=== PATIENT | male | born 1960 | race Caucasian/White ===

== ENCOUNTER 2020-01-16 14:37 | Outpatient (REF) | payer OTHER, SELFPAY | END 2020-01-16 14:38 | disposition home or self-care (01) | LOC: HO.BBR 14:37 | PROVIDERS: PCP Internal Medicine; Visit Provider Internal Medicine Medical Oncology | DX: D75.1 Secondary polycythemia (principal) | CPT/HCPCS: 85018; 99195 ==

== ENCOUNTER 2020-02-16 | Outpatient (REF) | payer OTHER, SELFPAY | END 2020-02-16 00:01 | disposition home or self-care (01) | LOC: HO.BBR | PROVIDERS: PCP Internal Medicine; Visit Provider Internal Medicine Medical Oncology | DX: M46.1 Sacroiliitis, not elsewhere classified (principal); G62.89 Other specified polyneuropathies; Z79.899 Other long term (current) drug therapy | CPT/HCPCS: 99202 ==

== ENCOUNTER 2020-12-14 08:51 | Outpatient (REF) | payer OTHER, SELFPAY ==
[2020-12-14 09:21] LABS: MANUAL DIFF FLAG NO
[2020-12-14 09:28] LABS: Basophils Absolute Auto 0.1 X10*3/uL (0.0-0.2); Basophils Percent Auto 0.8 % (0-2); Eosinophils Absolute Auto 0.3 X10*3/uL (0.0-0.4); Hematocrit 49.2 % (42-52); Hemoglobin 16.4 g/dl (14.0-18.0); Imm Gran Abs Auto 0.03 X10*3/uL (0.00-0.03); Imm Gran Pct Auto 0.3 % (0.0-0.4); Lymphocytes Absolute Auto 3.2 X10*3/uL (1.2-4.9); Lymphocytes Percent Auto 37.4 % (20-40); Mean Corpuscular HGB Conc 33.3 g/dl (31.0-36.0); Mean Corpuscular Hemoglobin 31.5 pg (27.0-33.0); Mean Corpuscular Volume 94.4 fL (80-98); Monocytes Absolute Auto 0.7 X10*3/uL (0.1-1.2); Monocytes Percent Auto 7.9 % (2-11); Neutrophils Absolute Auto 4.4 X10*3/uL (2.0-8.3); Neutrophils Percent Auto 50.6 % (45-73); Platelet Count 231 X10*3/uL (160-400); Red Blood Count 5.21 X10*6/uL (4.60-5.80); Red Cell Distribution Width 13.9 % (11.0-16.0); White Blood Count 8.6 X10*3/uL (4.8-10.8)
[2020-12-14 09:58] LABS: Alanine Aminotransferase 29 U/L (0-40); Albumin Level 4.5 g/dL (3.5-5.0); Alkaline Phosphatase 90 U/L (39-117); Anion Gap 11 (12-20); Aspartate Amino Transferase 20 U/L (5-37); Bilirubin Total 0.5 mg/dL (0.0-1.0); Blood Urea Nitrogen 12 mg/dL (9-16); Carbon Dioxide 27 mmol/L (22-29); Chloride 105 mmol/L (96-108); Cholesterol 187 mg/dL; Estimated Glomerular Filt Rate > 60; Glucose Fasting 96 mg/dL (60-99); HDL Cholesterol 32 mg/dL; LDL Cholesterol Calculated 126 mg/dl; Potassium 4.2 mmol/L (3.3-5.1); Sodium 139 mmol/L (135-145); Total Protein 7.9 g/dL (6.5-8.0); Triglycerides 149 mg/dL
[2020-12-14 10:08] LABS: Uric Acid 5.3 mg/dL (3.4-7.0)
[2020-12-21 14:01] LABS: Vitamin D 25-OH, D2 <4 ng/mL; Vitamin D 25-OH, D3 24 ng/mL; Vitamin D 25-OH, Total 24 ng/mL (30-100)
== END 2020-12-14 08:52 | disposition home or self-care (01) ==
LOC: HO.LAB 08:51
PROVIDERS: PCP Internal Medicine; Visit Provider Internal Medicine
DX: E55.9 Vitamin D deficiency, unspecified (principal); E78.5 Hyperlipidemia, unspecified; M10.9 Gout, unspecified; D64.9 Anemia, unspecified; G62.89 Other specified polyneuropathies
CPT/HCPCS: 36415; 80053; 80061; 82306; 84550; 85025

== ENCOUNTER 2022-01-13 15:00 | Outpatient (RCR) | payer OTHER, SELFPAY ==
--- NOTE | 2021-12-18 15:18 | MHC.PT.EP ---
[facility] [place] Office [place] Office [place] Office [address] Angelique Jain [address] [phone] F: [phone] F: [phone] F: [phone] F: [phone] Physical Therapy Plan of Care Date of Evaluation: Date of Surgery: Diagnosis: SACROILIITIS Assessment: 61 YO MALE REF TO PT W PROGRESSIVE SACROILIITIS x 2 YRS. 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 OBJECTIVE FINDINGS: DECR POSTURE, DECR HIP FLEXIB, LIMITED TRUNK AROM, (+) LEFT HIP / FADIR SIGN, STRENGTH DEFICITS IN PROX LEs AND LUMBOPELVIC REGION, AND FLUCTUATING LB/ Lt SI PAIN W INTER LEFT ANKLE /FOOT BURNING. FUNCTIONALLY, Pt HAS DECR BODY MECH AWARENESS, DECR MARGARET TO WALKING, SITTING, AND PROLONGED STANDING- HE HAS DECR TENDENCY TO SQUAT -> HABITUALLY FLEXES AT WAIST. Pt WOULD BENEFIT FROM PT TO ADDRESS THE ABOVE FINDINGS, DEV A PROGR HEP, AND SELF-SX MGMT STRATEGIES. Frequency and Duration: The patient will be seen 2 X wk X 5 wks Short Term Goals: *Pt INDEP W SELF CORRECT POSTURE AND BODY MECH TO EASE LB STRESS *Pt'S LBP DECR TO 2-3/10 *IMPROVE FREDI HIP FLEXIBILITY Nursing Home Goals: Pt INDEP W HEP PROGRESSION AND SELF-SX MGMT STRATEGIES IN 5 WKS Pt RESUME REG ADLs EVIDENT W IMPROVED OSWESTRY SCORE BY 8-10 POINTS IN 5 WKS Pt INCR LE STRENGTH BY 1 GRADE IN 5 WKS Treatment Plan: Modalities to reduce pain, spasms and effusion. Manual therapy to restore motion and function. Therapeutic exercise to improve strength and flexibility. Neuromuscular re-education for posture and balance. Therapeutic activities to return to functional activities of daily living. Electronically signed by: Laura Oneil,PT Please sign and return to therapist. Thank you for your referral.
--- NOTE | 2022-03-11 10:24 | MHC.PT.DC ---
[facility] [place] Office [place] Office [place] Office [address] Angelique Jain [address] [phone] F: [phone] F: [phone] F: [phone] F: [phone] Physical Therapy Discharge Report Diagnosis: SACROILIITIS Date of Surgery: Date of Evaluation: 12/18/21 Date of Discharge: 03/11/22 Treatments to Date: 6 Cancellations to Date: 4 No Shows to Date: 3 Discharge Status: Improved Function Independent with HEP Visit Non-compliance Discharge Summary: Pt RESPONDED WELL TO PT INTERVENTION FOR HIS SACRAL / LBP. HE DEMON IMPROVED FLEXIBILITY, FUNCTIONAL MOBILITY TOLERANCE, AND OVERALL REDUCED PAIN. HE HAS A THOROUGH AND PROGRESSIVE HEP. A FORMAL REASSESSMENT WAS NOT PERFORMED DUE TO Pt'S DECR ATTENDANCE WITH LAST FEW SCHED APPTS. Electronically signed by: ADRIAN RAPHAEL,PT Please sign and return to therapist. Thank you for your referral.
== END 2022-03-11 10:23 | disposition home or self-care (01) ==
LOC: HO.PT 15:00
PROVIDERS: PCP Internal Medicine; Visit Provider Internal Medicine
DX: M46.1 Sacroiliitis, not elsewhere classified (principal)
CPT/HCPCS: 97110; 97112; 97162; 97530

== ENCOUNTER 2022-01-22 15:09 | Outpatient (REF) | payer OTHER, SELFPAY ==
[2022-01-22 15:36] LABS: MANUAL DIFF FLAG NO
[2022-01-22 16:09] LABS: Basophils Absolute Auto 0.1 X10*3/uL (0.0-0.2); Basophils Percent Auto 0.7 % (0-2); Eosinophils Absolute Auto 0.1 X10*3/uL (0.0-0.4); Eosinophils Percent Auto 1.3 % (0-4); Hematocrit 50.3 % (42.0-52.0); Imm Gran Abs Auto 0.04 X10*3/uL (0.00-0.03); Imm Gran Pct Auto 0.4 % (0.0-0.4); Lymphocytes Absolute Auto 3.1 X10*3/uL (1.2-4.9); Lymphocytes Percent Auto 31.9 % (20-40); Mean Corpuscular HGB Conc 33.8 g/dl (31.0-36.0); Mean Corpuscular Hemoglobin 31.8 pg (27.0-33.0); Mean Platelet Volume 9.7 fL (9.4-12.4); Monocytes Absolute Auto 0.6 X10*3/uL (0.1-1.2); Neutrophils Absolute Auto 5.7 x10*3/uL (2.0-8.3); Neutrophils Percent Auto 59.7 % (45-73); Platelet Count 257 X10*3/uL (160-400); Red Blood Count 5.35 X10*6/uL (4.60-5.80); Red Cell Distribution Width 12.8 % (11.0-16.0); White Blood Count 9.6 X10*3/uL (4.8-10.8)
[2022-01-22 16:36] LABS: Alanine Aminotransferase 45 U/L (0-40); Albumin Level 4.7 g/dL (3.5-5.0); Alkaline Phosphatase 93 U/L (39-117); Anion Gap 18 (12-20); Aspartate Amino Transferase 27 U/L (5-37); Bilirubin Total 0.4 mg/dL (0.0-1.0); Blood Urea Nitrogen 17 mg/dL (9-16); Calcium 10.3 mg/dL (8.4-10.2); Carbon Dioxide 24 mmol/L (22-29); Chloride 103 mmol/L (96-108); Cholesterol 202 mg/dL; Estimated Glomerular Filt Rate > 60; Glucose Fasting 95 mg/dL (60-99); HDL Cholesterol 35 mg/dL; LDL Cholesterol Calculated 145 mg/dl; Potassium 4.8 mmol/L (3.3-5.1); Sodium 140 mmol/L (135-145); Total Protein 8.2 g/dL (6.5-8.0); Triglycerides 114 mg/dL
[2022-01-22 16:57] LABS: Vitamin D 25-OH Total 25.3 ng/mL (>30)
== END 2022-01-22 15:10 | disposition home or self-care (01) ==
LOC: HO.LAB 15:09
PROVIDERS: PCP Internal Medicine; Visit Provider Internal Medicine
DX: Z00.00 Encounter for general adult medical examination without abnormal findings (principal); D64.9 Anemia, unspecified; E78.5 Hyperlipidemia, unspecified; E55.9 Vitamin D deficiency, unspecified; M46.1 Sacroiliitis, not elsewhere classified
CPT/HCPCS: 36415; 80053; 80061; 82306; 85025

== ENCOUNTER → 2022-01-29 14:56 | Outpatient (BNVA) | payer OTHER, SELFPAY | PROVIDERS: PCP Internal Medicine; Visit Provider Internal Medicine Endocrinology, Diabetes & Metabolism | DX: E83.52 Hypercalcemia (principal) | CPT/HCPCS: 99202 ==

== ENCOUNTER 2022-02-18 14:36 | Outpatient (REF) | payer OTHER, SELFPAY ==
[2022-02-18 17:38] LABS: Vitamin D 25-OH Total 26.9 ng/mL (>30)
[2022-02-19 14:17] LABS: Calcium (PTHI) 9.8 mg/dL (8.6-10.3); PTHI 42 pg/mL (16-77)
== END 2022-02-18 14:37 | disposition home or self-care (01) ==
LOC: HO.LAB 14:36
PROVIDERS: PCP Internal Medicine; Visit Provider Internal Medicine Endocrinology, Diabetes & Metabolism
DX: E83.52 Hypercalcemia (principal)
CPT/HCPCS: 36415; 82306; 83970

== ENCOUNTER 2023-06-04 15:11 | Outpatient (AMB) | payer OTHER, SELFPAY ==
--- NOTE | 2023-06-04 15:14 | A.OFFPC_ITS ---
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 Accompanied by: Spouse Allergies cat dander [CAT] Allergy (Mild, Verified 06/04/23 15:28) ITCHING Medication List - Last Reconciled 06/04/23 by Helga Ibarra MD albuterol sulfate 90 mcg/actuation 2 puffs inhalation Q6H PRN 30 days amlodipine 10 mg PO DAILY 90 days calcium carbonate-vitamin D3 250 mg-3.125 mcg (125 unit) (Oyster Shell Calcium- Vitamin D3) 1 tab PO DAILY 90 days cholecalciferol (vitamin D3) 25 mcg PO DAILY 90 days fluticasone propionate 50 mcg/actuation 1 spray intranasal DAILY gabapentin 600 mg PO TID 30 days ibuprofen 600 mg PO TID loratadine 10 mg PO DAILY rosuvastatin 10 mg PO BEDTIME 90 days Tobacco use date assessed: 06/04/23 Dental Screening Dental Screen Date: 06/04/23 Did you have a dental visit in the last 12 months?: No Did you have a dental problem in the last 6 months where you did not have access to dental care?: No Was dental information given to patient?: Patient declined HPI HPI Comments History of Present Illness Details This is a 63-year-old male with hypertension, pure hypercholesterolemia, sacroiliitis and allergic rhinitis that comes today accompanied by for follow-up on his conditions. Blood pressure elevated and his compliant with amlodipine. I will restart him on losartan. Lipid panel will be order. On gabapentin for his sacroiliitis and ibuprofen as needed which seems to help in back pain. Has allergic rhinitis but is not compliant with antihistamines and I recommend to start using it daily. No chest pain or shortness of breath. He has a chronic smoker and has occasional shortness of breath. Does not want to use an inhaler on a daily basis. I will prescribe rescue inhaler as needed as per patient's wishes. Has some skin lesions that most likely are due to age but they still want to be referred to Dermatology. [facility] Medical History (Updated 02/22/24 @ 16:36 by Helga Ibarra MD) Hypovitaminosis D Ingrown toenail Hepatitis C Essential hypertension Peripheral axonal neuropathy Sacroiliitis Surgical History History of strabismus surgery History of knee surgery Family History Father Stroke Hypertension Mother COPD (chronic obstructive pulmonary disease) Maternal Grandmother No problems noted. Maternal Grandfather No problems noted. Paternal Grandmother Cancer Social History Housing: Apartment Alcohol intake: current Alcohol intake frequency: a few times a month Alcohol type: beer Patient Tobacco Use Status: Current everyday Tobacco user Tobacco use type: Cigarette Cigarette Packs Per Day: 1 e-Cigarette/Vaping Use: Never Used Second Hand Smoke Exposure: No service: No Current occupational status: employed Current occupational exposures/hazards: No Cognitive needs: No Hearing needs: No Vision needs: Yes Questionnaire PHQ-9 Over the last 2 weeks, how often have you been bothered by any of the following problems? 1. Little interest or pleasure in doing things: not at all 2. Feeling down, depressed, or hopeless: not at all 3. Trouble falling or staying asleep, or sleeping too much: not at all 4. Feeling tired or having little energy: not at all 5. Poor appetite or overeating: not at all 6. Feeling bad about yourself - or that you are a failure or have let yourself or your family down: not at all 7. Trouble concentrating on things, such as reading the newspaper or watching television: not at all 8. Moving or speaking so slowly that other people could have noticed. Or the opposite - being so fidgety or restless that you have been moving around a lot more than usual: not at all 9. Thoughts that you would be better off or of hurting yourself in some way: not at all Total score: 0 Depression Screening Interpretation: Negative Depression Screening Done: Yes 31741 - PHQ-9 Billing: Yes Source: Developed by Drs. Minh Creda, Mariaa LeachMike and colleagues, with an educational lennox from [employer]. Thrive Questionnaire Date Thrive assessed: 06/04/23 I am a: Patient What is your living situation today?: I have a steady place to live Within the past 12 months, did the food you bought not last and you didn't have the money to get more?: Never true Within the past 12 months, did you worry whether your food would run out before you got money to buy more?: Never true Do you have trouble paying for medicines?: No Do you have trouble getting transportation to medical appointments?: No Do you have trouble paying your heating and electricity bill?: No Do you have trouble taking care of your child, family member or friend?: No Do you have trouble with day-to-day activities such as bathing, preparing meals, shopping, managing finances, etc.?: No Are you currently unemployed and looking for a job?: No Are you interested in more education?: No Please select the resources that you would like help with: None Currently or been in a relationship where the following occur: no concerns reported THRIVE Score: 0 AUDIT C Alcohol Use Questionnaire (AUDIT-C) 1. How often do you have a drink containing alcohol?: 2-4 times a month 2. How many drinks containing alcohol do you have on a typical day when you are drinking?: 3 or 4 3. How often do you have six or more drinks on one occasion?: Never Total Score: 3 Score Reviewed/Action Taken: Yes SANDY-7 AMB Questionnaire SANDY-7 Date SANDY - 7 assessed: 06/04/23 Feeling nervous, anxious, or on edge: 0 = Not at all Not being able to stop or control worryin = Not at all Worrying too much about different things: 0 = Not at all Trouble relaxin = Not at all Being so restless that it is hard to sit still: 0 = Not at all Becoming easily annoyed or irritable: 0 = Not at all Feeling afraid as if something awful might happen: 0 = Not at all Total SANDY-7 score (0-4 normal; 5-9 mild; 10-14 moderate; 15-21 severe): 0 Source: Developed by Drs. Minh Cerda, Mike Blackwell and colleagues, with an educational lennox from [employer]. SANDY-7 Assessment Billing SANDY-7 Assessment Tool: SANDY-7 Assessment 89627 Review of Systems Const All systems reviewed & are unremarkable except as noted in HPI and below Eyes Reports no additional complaints, Denies change in vision and Denies other visual disturbances Card Denies chest pain at rest, Denies chest pain with activity, Denies edema, Denies irregular heart rhythm, Denies claudication, Denies dyspnea, Denies dyspnea on exertion, Denies orthopnea, Denies paroxysmal nocturnal dyspnea and Denies slow heart rate Resp Denies cough, Denies dyspnea and Denies dyspnea on exertion GI Denies abdominal pain, Denies change in bowel habits, Denies excessive flatus, Denies nausea and Denies vomiting Denies urinary hesitancy, Denies urinary incontinence and Denies urinary urgency Musc Denies abnormal gait, Denies atrophy, Denies deformity and Denies limited range of motion Skin/Breast Denies bleeding lesions, Denies changing lesions and Denies rash Neuro Denies abnormal gait, Denies behavioral changes and Denies lack of coordination Psych Denies behavioral changes Physical exam (Primary Care) Vital Signs: Last Vital Signs BP 156/100 H 06/04/23 15:25 BMI result Body Mass Index 28.5 Tobacco/Smoking Status: Tobacco use Status Tobacco use date assessed 06/04/23 06/04/23 15:28 Patient Tobacco Use Status Current everyday Tobacco 06/04/23 15:15 Tobacco use type Cigarette 06/04/23 15:15 e-Cigarette/Vaping Use Never Used 06/04/23 15:15 PHQ-9: PHQ-9 Score PHQ-9: Total score 0 06/04/23 15:43 Depression Screening Interpretation: Negative Thrive Assessment: Date of Thrive Assessment Date Thrive assessed 06/04/23 06/04/23 15:15 Currently or been in a relationship where the following occur: no concerns reported Eyes General: appearance normal, both eyes and all related structures Eyelids: Yes eyelids normal Conjunctivae: conjunctivae normal Neck Neck: Yes normal visual inspection and Yes supple Resp Effort & Inspection: normal respiratory effort Auscultation: clear to auscultation bilaterally Cardio Jugular venous distension: no JVD Rate: regular rate Rhythm: regular rhythm Heart sounds: S1 normal heart sound present and S2 normal heart sound present Extrem General: Yes full ROM Assessment and Plan Assessment & Plan (1) Essential hypertension: Code(s): I10 - Essential (primary) hypertension Plan: Continue amlodipine. Start losartan. Blood pressure goal is equal or less than 130/80. (2) Pure hypercholesterolemia: Code(s): E78.00 - Pure hypercholesterolemia, unspecified Plan: Continue statins. Repeat lipid panel. (3) Sacroiliitis: Code(s): M46.1 - Sacroiliitis, not elsewhere classified Plan: Continue gabapentin. (4) Allergic rhinitis: Code(s): J30.9 - Allergic rhinitis, unspecified Plan: Restart loratadine daily. Orders: Orders Lipid Panel Today E78.5 - Hyperlipidemia, unspecified Vitamin D 25-OH Total Today E55.9 - Vitamin D deficiency, unspecified Comprehensive [place]. Panel Fast Today E78.00 - Pure hypercholesterolemia, unspecified Referrals Dermatology Referral D22.9 - Melanocytic nevi, unspecified Medications: New losartan 25 mg PO DAILY 90 days 90 tabs 1RF I10 - Essential (primary) hypertension levalbuterol tartrate 45 mcg/actuation (Xopenex HFA) 2 inhalations inhalation Q6H 30 days 15 grams 2RF Refilled loratadine 10 mg PO DAILY 30 tabs 6RF Discontinued albuterol sulfate 90 mcg/actuation Discontinued Reason: Patient Completed Course 2 puffs inhalation Q6H 30 days PRN 6.7 grams 1RF shortness of breath or wheezing Coding Level of Care Code Est Pt Level 4 (31667) Diagnoses Essential hypertension I10 Pure hypercholesterolemia E78.00 Sacroiliitis M46.1 Allergic rhinitis J30.9 Additional Codes SANDY-7 Assessment Billing - SANDY-7 Assessment Tool: SANDY-7 Assessment 93144 ([id number]) Time Spent (min) 23
[2023-06-04 15:25] VITALS: BP 156/100; BMI 28.5
[2023-06-04 16:35] VITALS: BP 150/90
== END 2023-06-04 15:50 | disposition home or self-care (01) ==
PROVIDERS: PCP Internal Medicine; Visit Provider Internal Medicine
DX: I10 Essential (primary) hypertension (principal); E78.00 Pure hypercholesterolemia, unspecified; M46.1 Sacroiliitis, not elsewhere classified; J30.9 Allergic rhinitis, unspecified
CPT/HCPCS: 99214

== ENCOUNTER 2023-10-27 13:32 | Outpatient (REF) | payer OTHER, SELFPAY ==
[2023-10-27 15:22] LABS: Alanine Aminotransferase 21 U/L (0-40); Albumin Level 4.5 g/dL (3.5-5.0); Alkaline Phosphatase 70 U/L (39-117); Anion Gap 15 (12-20); Aspartate Amino Transferase 16 U/L (5-37); Bilirubin Total 0.5 mg/dL (0.0-1.0); Blood Urea Nitrogen 10 mg/dL (9-16); Calcium 10.1 mg/dL (8.4-10.2); Carbon Dioxide 22 mmol/L (22-29); Chloride 105 mmol/L (96-108); Cholesterol 185 mg/dL (<200); Estimated Glomerular Filt Rate > 60; Glucose Fasting 106 mg/dL (60-99); HDL Cholesterol 34 mg/dL (>40); LDL Cholesterol Calculated 113 mg/dL (<100); Potassium 3.9 mmol/L (3.3-5.1); Sodium 138 mmol/L (135-145); Total Protein 7.8 g/dL (6.5-8.0); Triglycerides 190 mg/dL (<150)
[2023-10-27 15:39] LABS: Vitamin D 25-OH Total 28.9 ng/mL (>30)
== END 2023-10-27 13:33 | disposition home or self-care (01) ==
LOC: HO.LAB 13:32
PROVIDERS: PCP Internal Medicine; Visit Provider Internal Medicine
DX: E78.5 Hyperlipidemia, unspecified (principal); E55.9 Vitamin D deficiency, unspecified; E78.00 Pure hypercholesterolemia, unspecified
CPT/HCPCS: 36415; 80053; 80061; 82306

== ENCOUNTER 2023-11-05 13:55 | Outpatient (AMB) | payer OTHER, SELFPAY ==
[2023-11-05 13:57] VITALS: BP 126/70; BMI 27.2
--- NOTE | 2023-11-05 13:57 | A.OFFPC_ITS ---
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 Accompanied by: Spouse Allergies cat dander [CAT] Allergy (Mild, Verified 11/05/23 14:10) ITCHING Medication List - Last Reconciled 11/05/23 by Helga Ibarra MD amlodipine 10 mg PO DAILY 90 days calcium carbonate-vitamin D3 250 mg-3.125 mcg (125 unit) (Oyster Shell Calcium-Vitamin D3) 1 tab PO DAILY 90 days cholecalciferol (vitamin D3) 25 mcg PO DAILY 90 days fluticasone propionate 50 mcg/actuation 1 spray intranasal DAILY gabapentin 600 mg PO TID 30 days ibuprofen 600 mg PO TID levalbuterol tartrate 45 mcg/actuation (Xopenex HFA) 2 inhalations inhalation Q6H 30 days loratadine 10 mg PO DAILY losartan 25 mg PO DAILY 90 days rosuvastatin 10 mg PO BEDTIME 90 days Tobacco use date assessed: 06/04/23 Dental Screening Dental Screen Date: 06/04/23 HPI HPI Comments History of Present Illness Details This is a 63-year-old male with COPD that comes accompanied by for his physical exam. Last colonoscopy was 2016 showing tubular adenoma and will be refer through open access. He complains of both of his 1st toenails bothering him most likely due to onychogryphosis and will be referred to Podiatry. COPD stable. [facility] Medical History (Updated 11/05/23 @ 14:45 by Helga Ibarra MD) Hypovitaminosis D Ingrown toenail Hepatitis C Essential hypertension Peripheral axonal neuropathy Sacroiliitis Surgical History History of strabismus surgery History of knee surgery Family History Father Stroke Hypertension Mother COPD (chronic obstructive pulmonary disease) Maternal Grandmother No problems noted. Maternal Grandfather No problems noted. Paternal Grandmother Cancer Social History Housing: Apartment Alcohol intake: current Alcohol intake frequency: a few times a month Alcohol type: beer Patient Tobacco Use Status: Current everyday Tobacco user Tobacco use type: Cigarette Cigarette Packs Per Day: 1 e-Cigarette/Vaping Use: Never Used Second Hand Smoke Exposure: No service: No Current occupational status: employed Current occupational exposures/hazards: No Cognitive needs: No Hearing needs: No Vision needs: Yes Questionnaire Thrive Questionnaire Date Thrive assessed: 06/04/23 SANDY-7 AMB Questionnaire SANDY-7 Date SANDY - 7 assessed: 06/04/23 Source: Developed by Drs. Minh Cerda, Mariaa Leach, Mike Santamaria and colleagues, with an educational lennox from [employer]. Review of Systems Const All systems reviewed & are unremarkable except as noted in HPI and below Card Denies chest pain at rest, Denies chest pain with activity, Denies edema, Denies irregular heart rhythm, Denies claudication, Denies dyspnea, Denies dyspnea on exertion, Denies orthopnea, Denies paroxysmal nocturnal dyspnea and Denies slow heart rate Resp Denies cough, Denies dyspnea and Denies dyspnea on exertion Skin/Breast Denies bleeding lesions, Denies changing lesions, Reports nail changes and Denies rash Physical exam (Primary Care) Vital Signs: Last Vital Signs BP 126/70 11/05/23 13:57 BMI result Body Mass Index 27.2 BMI Assessment/Plan discussion: High BMI High, discussed plan: lifestyle, weight reduction, dietary and physical activity Tobacco/Smoking Status: Tobacco use Status Tobacco use date assessed 06/04/23 11/05/23 13:58 Patient Tobacco Use Status Current everyday Tobacco 11/05/23 13:58 Tobacco use type Cigarette 11/05/23 13:58 e-Cigarette/Vaping Use Never Used 11/05/23 13:58 Are you ready to quit: No Tobacco cessation counseling provided: Yes Items discussed: [employer]uitWorks Relapse Prevention: discussed the importance of a supportive environment, discussed negative mood or depression after quitting, weight gain after smoking is common and discussed dietary, exercise and/or lifestyle changes Number of minutes spent counselin CPT code: 55888 - 4-10 Minutes Thrive Assessment: Date of Thrive Assessment Date Thrive assessed 06/04/23 11/05/23 13:58 HENMT Head: Yes normal to inspection, Yes normocephalic and Yes atraumatic Ears: external ears normal Eyes General: appearance normal, both eyes and all related structures Eyelids: Yes eyelids normal Conjunctivae: conjunctivae normal Neck Neck: Yes normal visual inspection and Yes supple Resp Effort & Inspection: normal respiratory effort Auscultation: clear to auscultation bilaterally Cardio Jugular venous distension: no JVD Rate: regular rate Rhythm: regular rhythm Heart sounds: S1 normal heart sound present and S2 normal heart sound present GI Inspection: Yes normal to inspection Palpation (GI): Soft to palpation and nontender Auscultation: normal bowel sounds Skin General skin exam: no rashes or lesions noted Nails: dystrophic and yellow and thickened Neuro General: no focal motor deficits Extrem General: Yes full ROM Psych Appearance: grossly normal Assessment and Plan Assessment & Plan (1) Physical exam: Code(s): Z00.00 - Encounter for general adult medical examination without abnormal findings Plan: Repeat in a year. (2) COPD (chronic obstructive pulmonary disease): Code(s): J44.9 - Chronic obstructive pulmonary disease, unspecified Plan: Use rescue inhaler as needed. (3) Onychogryposis: Code(s): L60.2 - Onychogryphosis Plan: Referred to Podiatry. Orders: Referrals Open Access Screening Colonoscopy Referral Z12.11 - Encounter for screening for malignant neoplasm of colon Podiatry Referral L60.2 - Onychogryphosis Medications: New Ventolin HFA 90 mcg/actuation (albuterol sulfate) 2 puffs inhalation Q6H 30 days PRN 18 grams 3RF shortness of breath or wheezing NS J44.9 - Chronic obstructive pulmonary disease, unspecified Refilled levalbuterol tartrate 45 mcg/actuation (Xopenex HFA) 2 inhalations inhalation Q6H 30 days 15 grams 2RF fluticasone propionate 50 mcg/actuation 1 spray intranasal DAILY 16 mL 4RF Coding Level of Care Code Est Pt Level 3 (57030) Est Pt Prev Care 40-64y(82584) Diagnoses Physical exam Z00.00 COPD (chronic obstructive pulmonary disease) J44.9 Onychogryposis L60.2 Additional Codes Vital Signs *Quality* - CPT code: 58826 - 4-10 Minutes ([id number]) Time Spent (min) 34
== END 2023-11-05 14:44 | disposition home or self-care (01) ==
PROVIDERS: PCP Internal Medicine; Visit Provider Internal Medicine
DX: Z00.00 Encounter for general adult medical examination without abnormal findings (principal); J44.9 Chronic obstructive pulmonary disease, unspecified; Z86.010 Personal history of colon polyps; L60.2 Onychogryphosis
CPT/HCPCS: 99396

== ENCOUNTER → 2024-02-11 15:53 | Outpatient (BNVA) | payer OTHER, SELFPAY | PROVIDERS: PCP Internal Medicine; Visit Provider Internal Medicine | DX: Z23 Encounter for immunization (principal) | CPT/HCPCS: 90471; 90656 ==

== ENCOUNTER → 2024-02-11 15:53 | Outpatient (AMB) | payer OTHER, SELFPAY ==
--- NOTE | 2024-02-11 16:03 | A.OFFPC_ITS ---
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 Maternal Grandfather No problems noted. Paternal Grandmother Cancer Social History Housing: Apartment Alcohol intake: current Alcohol intake frequency: a few times a month Alcohol type: beer Patient Tobacco Use Status: Current everyday Tobacco user Tobacco use type: Cigarette Cigarette Packs Per Day: 1 e-Cigarette/Vaping Use: Never Used Second Hand Smoke Exposure: No service: No Current occupational status: employed Current occupational exposures/hazards: No Cognitive needs: No Hearing needs: No Vision needs: Yes Questionnaire Thrive Questionnaire Date Thrive assessed: 06/04/23 SANDY-7 AMB Questionnaire SANDY-7 Date SANDY - 7 assessed: 06/04/23 Source: Developed by Drs. Minh Cerda, Mariaa Leach, Mike Santamaria and colleagues, with an educational lennox from [employer]. Physical exam (Primary Care) Tobacco/Smoking Status: Tobacco use Status Tobacco use date assessed 06/04/23 02/11/24 16:03 Patient Tobacco Use Status Current everyday Tobacco 02/11/24 16:03 Tobacco use type Cigarette 02/11/24 16:03 e-Cigarette/Vaping Use Never Used 02/11/24 16:03 Thrive Assessment: Date of Thrive Assessment Date Thrive assessed 06/04/23 02/11/24 16:03 Office Procedures Flu Questionnaire Does the patient have a severe egg allergy?: No Does the patient have severe life threatening allergies?: No Does the patient have a fever or illness today?: No Has the patient ever had Guillain-Kent Syndrome?: No Has the patient ever had any past reaction to a flu shot?: No Immunizations Fluarix Triv [id number] (PF) 45 mcg (15 mcg x 3)/0.5 mL IM syringe Performing Provider: Helga Ibarra MD Performing Location[facility] [place] [facility] Administered by: JOSÉ ANTONIO Cuellar on 02/11/24 16:03 Dose Route Admin Location Dispensed Lot Number Expiration Date NDC Revolving Field [employer]er 0.5 mL IM Right Deltoid 0.5 mL [id number] 10/10/24 [id number] [employer] VIS Given Date VIS Provided VIS Publication Date 02/11/24 Single Vaccine 20 Eligibility Eligibility Date Funding Source Not [facility] Eligible 02/11/24 Private Coding Level of Care Code Procedure Only Diagnoses Flu vaccine need Z23 Assessment & Plan Assessment & Plan (1) Flu vaccine need: Code(s): Z23 - Encounter for immunization Category: Medical Plan: Flu vaccine given Orders: Orders Influenza [id number] Immunization Today Z23 - Encounter for immunization
== END ==
LOC: HO.HMCH 15:53
PROVIDERS: PCP Internal Medicine; Visit Provider Internal Medicine
DX: Z23 Encounter for immunization (principal)

== ENCOUNTER 2024-03-24 14:21 | Outpatient (AMB) | payer OTHER, SELFPAY ==
[2024-03-24 14:25] VITALS: BP 120/78; PULSE 78; O2SAT 97; BMI 26.9
--- NOTE | 2024-03-24 14:25 | A.OFFVIS_ITS ---
Vital Signs 03/24/24 14:25 Height 5 ft 9 in Weight 182 lb BMI 26.9 BP 120/78 Blood Pressure Location Rt brachial Position Sitting Pulse 78 Pulse Source Doppler Pulse Oximetry (%) 97 Oxygen Delivery Method Room Air Intake Visit Reasons: copd Allergies cat dander [CAT] Allergy (Mild, Verified 03/24/24 14:31) ITCHING HPI HPI copd: Details: 64-year-old gentleman, recent 50+ pack-year smoker, referred for pulmonary evaluation. Patient does complain of lump sensation in his throat and some dysp shameka. He has been using levalbuterol MDI with suboptimal control of his symptoms. Patient does have family history of COPD in his mother. He denies exposure to industrial dusts. He does complain of multiple environmental allergies. He denies having recent pulmonary or allergy testing. [facility] Medical History Hypovitaminosis D Ingrown toenail Hepatitis C Essential hypertension Peripheral axonal neuropathy Sacroiliitis Surgical History History of strabismus surgery History of knee surgery Family History Father Stroke Hypertension Mother COPD (chronic obstructive pulmonary disease) Maternal Grandmother No problems noted. Maternal Grandfather No problems noted. Paternal Grandmother Cancer Social History (Updated 03/24/24 @ 14:33 by JOSÉ ANTONIO Barrios) Housing: Apartment Alcohol intake: current Alcohol intake frequency: a few times a month Alcohol type: beer Patient Tobacco Use Status: Current everyday Tobacco user Tobacco use type: Cigarette Cigarette Packs Per Day: 1 Years Smoked: started around age 17, 2PPD e-Cigarette/Vaping Use: Never Used Second Hand Smoke Exposure: No service: No Current occupational status: employed Current occupational exposures/hazards: No Cognitive needs: No Hearing needs: No Vision needs: Yes Review of Systems Const Denies daytime sleepiness, Denies excessive sweating, Denies fatigue, Denies fever(s), Denies lethargy, Denies malaise, Denies night sweats, Denies snoring and Denies weight loss Eyes Denies blurry vision and Denies itchy eyes ENT Denies nasal congestion, Denies post nasal drip, Denies sinus pain, Denies sinus pressure and Denies other ( Thrush) Card Denies chest pain, Denies pedal edema, Denies dyspnea, Denies orthopnea and Denies paroxysmal nocturnal dyspnea Resp Denies cough, Denies hemoptysis, Denies excessive phlegm production, Denies dyspnea, Denies snoring and Denies wheezing GI Denies abdominal pain and Denies heartburn Musc Denies myalgias, Denies arthralgias and Denies joint swelling Skin/Breast Denies rash Neuro Denies memory loss and Denies seizure-like activity Psych Denies abnormal sleep pattern, Denies anxiety and Denies memory loss Endo Denies excessive sweating, Denies fatigue and Denies heat intolerance Naveed/Lymph Denies easy bruising Aller/Immun Denies itchy eyes, Denies seasonal rhinorrhea and Denies wheezing Physical Exam Vital Signs: Last Vital Signs Pulse 78 03/24/24 14:25 BP 120/78 03/24/24 14:25 Pulse Ox 97 03/24/24 14:25 Oxygen Delivery Method Room Air 03/24/24 14:25 BMI result Body Mass Index 26.9 Const General: no acute distress and alert Nutritional Appearance: not obese Orientation/consciousness: Other orientation findings ( oriented) HEENT Head: Yes atraumatic Eyes General: appearance normal, both eyes and all related structures Sclerae: sclerae normal EOM: EOMs intact bilaterally Neck Neck: Yes supple Lymphatic: no lymphadenopathy noted Resp Effort & Inspection: normal respiratory effort and no use of accessory muscles Auscultation: clear to auscultation bilaterally Cardio Rate: regular rate Rhythm: regular rhythm Heart sounds: no gallops, no murmurs and no rubs Skin General skin exam: other ( warm) Extrem General: No clubbing, No cyanosis and No edema Assessment & Plan Assessment & Plan (1) COPD (chronic obstructive pulmonary disease): Code(s): J44.9 - Chronic obstructive pulmonary disease, unspecified Category: Medical Plan: Likely underlying COPD of unclear severity. Suboptimally controlled on levalbuterol. Will add Trelegy and obtain full PFT. Likely underlying asthma component also. (2) Environmental allergies: Code(s): Z91.09 - Other allergy status, other than to drugs and biological substances Category: Medical Plan: Will obtain IgE level, CBC with differential, and RAST panel for further evaluation. (3) Personal history of nicotine dependence: Code(s): Z87.891 - Personal history of nicotine dependence Category: Medical Plan: Will obtain lung cancer screening CT chest. Orders: Orders Complete Blood Count Auto Diff Today Z91.09 - Other allergy status, other than to drugs and biological substances CT lung screening Today Z87.891 - Personal history of nicotine dependence Resp Allergy Profile Region I Today Z91.09 - Other allergy status, other than to drugs and biological substances PFT pulmonary function test Today J44.9 - Chronic obstructive pulmonary disease, unspecified Medications: New krmyqzwqzjy-vamqzubaa-utxhhtth 200-62.5-25 mcg (Trelegy Ellipta) 1 inh inhalation DAILY 1 ea 6RF J44.9 - Chronic obstructive pulmonary disease, unspecified Coding Level of Care Code New Pt Level 4 (69530) Diagnoses COPD (chronic obstructive pulmonary disease) J44.9 Environmental allergies Z91.09 Personal history of nicotine dependence Z87.891
== END 2024-03-24 14:47 | disposition home or self-care (01) ==
PROVIDERS: PCP Internal Medicine; Visit Provider Internal Medicine Pulmonary Disease
DX: J44.9 Chronic obstructive pulmonary disease, unspecified (principal); Z91.09 Other allergy status, other than to drugs and biological substances; Z87.891 Personal history of nicotine dependence
CPT/HCPCS: 99204

== ENCOUNTER 2024-03-24 14:21 | Outpatient (REF) | payer OTHER, SELFPAY ==
[2024-03-24 15:16] LABS: MANUAL DIFF FLAG NO
[2024-03-24 16:09] LABS: Basophils Absolute Auto 0.1 X10*3/uL (0.0-0.2); Basophils Percent Auto 0.8 % (0-2); Eosinophils Absolute Auto 0.2 X10*3/uL (0.0-0.4); Eosinophils Percent Auto 2.2 % (0-4); Hematocrit 48.3 % (42.0-52.0); Hemoglobin 16.2 g/dl (14.0-18.0); Imm Gran Abs Auto 0.05 X10*3/uL (0.00-0.03); Imm Gran Pct Auto 0.5 % (0.0-0.4); Lymphocytes Absolute Auto 3.1 X10*3/uL (1.2-4.9); Lymphocytes Percent Auto 31.2 % (20-40); Mean Corpuscular HGB Conc 33.5 g/dl (31.0-36.0); Mean Corpuscular Volume 95.5 fL (80.0-98.0); Mean Platelet Volume 9.8 fL (9.4-12.4); Monocytes Absolute Auto 0.8 X10*3/uL (0.1-1.2); Monocytes Percent Auto 8.5 % (2-11); Neutrophils Absolute Auto 5.6 x10*3/uL (2.0-8.3); Neutrophils Percent Auto 56.8 % (45-73); Platelet Count 201 X10*3/uL (160-400); Red Blood Count 5.06 X10*6/uL (4.60-5.80); Red Cell Distribution Width 13.1 % (11.0-16.0); White Blood Count 9.9 X10*3/uL (4.8-10.8)
[2024-03-31 18:59] LABS: Class Alternaria alternata 0; Class Aspergillus fumigatus 0; Class Bermuda Grass 0; Class Birch 0; Class Cat Dander 0; Class Cladosporium herbarum 0; Class Cockroach 0; Class Common Ragweed 0; Class Cottonwood 0; Class Derm. pterony 0; Class Dermatophagoides farinae 0; Class Dog Dander 0; Class Elm 0; Class Maple Box Elder 0; Class Mountain Cedar 0; Class Mouse Urine Protein 0; Class Mugwort 0; Class Oak 0; Class Penicillium crysogenum 0; Class Rough Pigweed 0; Class Sheep Sorrel 0; Class Sycamore 0; Class Timothy Grass 0; Class Walnut Tree 0; Class White Ash 0; Class White Mulberry 0; D001 IgE D pteronyssinus <0.10 kU/L; D002 - IgE D farinae <0.10 kU/L; E001 - IgE Cat Dander <0.10 kU/L; E005 - IgE Dog Dander <0.10 kU/L; E072-IgE Mouse Urine <0.10 kU/L; G002 IgE Bermuda Grass <0.10 kU/L; G006 - IgE Timothy Grass <0.10 kU/L; I006-IgE Cockroach, German <0.10 kU/L; Immunoglobulin E 43 kU/L (<OR=114); M001 IgE Penicillium chrysogen <0.10 kU/L; M002 - IgE Cladosporium herbar <0.10 kU/L; M003 - IgE Aspergillus fumigat <0.10 kU/L; M006 - IgE Alternaria alternat <0.10 kU/L; T001 IgE Maple/Box Elder <0.10 kU/L; T003 IgE Common Silver Birch <0.10 kU/L; T006 - IgE Cedar, Mountain <0.10 kU/L; T007 - IgE Oak, White <0.10 kU/L; T008 IgE Elm, American <0.10 kU/L; T010 - IgE Walnut <0.10 kU/L; T011 - IgE Maple Leaf Sycamore <0.10 kU/L; T014 - IgE Cottonwood <0.10 kU/L; T015 - IgE Ash, White <0.10 kU/L; T070 - IgE White Mulberry <0.10 kU/L; W001 - IgE Ragweed, Short <0.10 kU/L; W006 - IgE Mugwort <0.10 kU/L; W014 IgE Pigweed, Common <0.10 kU/L; W018 IgE Sheep Sorrel <0.10 kU/L
== END 2024-03-24 14:22 | disposition home or self-care (01) ==
LOC: HO.LAB 14:21
PROVIDERS: PCP Internal Medicine; Visit Provider Internal Medicine Pulmonary Disease
DX: Z91.09 Other allergy status, other than to drugs and biological substances (principal); J44.9 Chronic obstructive pulmonary disease, unspecified; Z87.891 Personal history of nicotine dependence
CPT/HCPCS: 36415; 82785; 85025; 86003; 99202

== ENCOUNTER 2024-04-15 13:59 | Outpatient (REF) | payer OTHER, SELFPAY ==
[2024-04-15 09:26] VITALS: PULSE 52; O2SAT 98
--- NOTE | 2024-04-15 14:06 | PFT_ITS ---
Indication: COPD Spirometry [FEV1 to FVC 68%; FEV1 2.16 L; FVC 3.2 L. it was a significant response to bronchodilators noted.] Lung Volumes [Total lung capacity 85% predicted; residual volume 117% predicted] Diffusion Capacity [DLCO 58% predicted] Comparisons [none] Interpretation [There is an obstructive ventilatory defect consistent with moderate COPD. There is a significant response to bronchodilators noted. Lung volumes are normal except for a trend of air trapping. The patient does have a moderate diffusion impairment secondary to likely underlying parenchymal lung disease such as emphysema. Clinical correlation warranted.] MTDD
== END 2024-04-15 14:00 | disposition home or self-care (01) ==
LOC: HO.RESP 13:59
PROVIDERS: PCP Internal Medicine; Visit Provider Internal Medicine Pulmonary Disease
DX: J44.9 Chronic obstructive pulmonary disease, unspecified (principal)
CPT/HCPCS: 94010; 94640; 94727; 94729

== ENCOUNTER → 2024-04-15 14:06 | Outpatient (BNV) | payer OTHER, SELFPAY | PROVIDERS: PCP Internal Medicine; Visit Provider Hospitalist | DX: J44.9 Chronic obstructive pulmonary disease, unspecified (principal) | CPT/HCPCS: 94060; 94727; 94729 ==

== ENCOUNTER 2024-05-10 14:44 | Outpatient (AMB) | payer OTHER, SELFPAY ==
[2024-05-10 14:47] VITALS: BP 120/80; BMI 27.5
--- NOTE | 2024-05-10 14:47 | A.OFFPC_ITS ---
Vital Signs 05/10/24 14:47 Height 5 ft 9 in Weight 186 lb BMI 27.5 BP 120/80 Blood Pressure Location Lt brachial Position Sitting Intake Visit Reasons: 6 month follow up Intake Note: patient here for a 6 month follow up Pharmacy Laboratory Technician Required: No Accompanied by: Self / Same As Patient Allergies cat dander [CAT] Allergy (Mild, Verified 05/10/24 15:04) ITCHING Medication List - Last Reconciled 05/10/24 by Helga Ibarra MD amlodipine 10 mg PO DAILY 90 days calcium carbonate-vitamin D3 250 mg-3.125 mcg (125 unit) (Oyster Shell Calcium- Vitamin D3) 1 tab PO DAILY 90 days cholecalciferol (vitamin D3) 25 mcg PO DAILY 90 days fluticasone propionate 50 mcg/actuation 1 spray intranasal DAILY aohwpbyhojd-ixnxvfvzm-uhpgcuih 200-62.5-25 mcg (Trelegy Ellipta) 1 inh inhalation DAILY gabapentin 600 mg PO TID 30 days ibuprofen 600 mg PO TID levalbuterol tartrate 45 mcg/actuation (Xopenex HFA) 2 inhalations inhalation Q6H 30 days loratadine 10 mg PO DAILY losartan 25 mg PO DAILY 90 days rosuvastatin 10 mg PO BEDTIME 90 days Ventolin HFA 90 mcg/actuation (albuterol sulfate) 2 puffs inhalation Q6H PRN 30 days NS Tobacco use date assessed: 05/10/24 Dental Screening Dental Screen Date: 05/10/24 Did you have a dental visit in the last 12 months?: No Did you have a dental problem in the last 6 months where you did not have access to dental care?: No Was dental information given to patient?: Patient has dentist HPI HPI Comments History of Present Illness Details This is a 64-year-old male with hypertension, pure hypercholesterolemia, COPD low vitamin-D that comes today complaining of a chronic sore throat and feeling like something is stuck in his throat with difficulty swallowing that started about 3 months ago. Denies any weight loss. I will order barium swallow and send him to ENT for chronic sore throat. Blood pressure stable. Lipid panel will be repeated. COPD is follow by pulmonology and is on long-acting inhaler. [facility] Medical History (Updated 05/10/24 @ 15:17 by Helga Ibarra MD) Hypovitaminosis D Ingrown toenail Hepatitis C Essential hypertension Peripheral axonal neuropathy Sacroiliitis Surgical History History of strabismus surgery History of knee surgery Family History Father Stroke Hypertension Mother COPD (chronic obstructive pulmonary disease) Maternal Grandmother No problems noted. Maternal Grandfather No problems noted. Paternal Grandmother Cancer Social History Housing: Apartment Alcohol intake: current Alcohol intake frequency: a few times a month Alcohol type: beer Patient Tobacco Use Status: Current everyday Tobacco user Tobacco use type: Cigarette Cigarette Packs Per Day: 1 Years Smoked: started around age 17, 2PPD e-Cigarette/Vaping Use: Never Used Second Hand Smoke Exposure: No service: No Current occupational status: employed Current occupational exposures/hazards: No Cognitive needs: No Hearing needs: No Vision needs: Yes Questionnaire PHQ-9 Over the last 2 weeks, how often have you been bothered by any of the following problems? 1. Little interest or pleasure in doing things: not at all 2. Feeling down, depressed, or hopeless: not at all 3. Trouble falling or staying asleep, or sleeping too much: not at all 4. Feeling tired or having little energy: not at all 5. Poor appetite or overeating: not at all 6. Feeling bad about yourself - or that you are a failure or have let yourself or your family down: not at all 7. Trouble concentrating on things, such as reading the newspaper or watching television: not at all 8. Moving or speaking so slowly that other people could have noticed. Or the opposite - being so fidgety or restless that you have been moving around a lot more than usual: not at all 9. Thoughts that you would be better off or of hurting yourself in some way: not at all Total score: 0 Depression Screening Interpretation: Negative Depression Screening Done: Yes 63713 - PHQ-9 Billing: Yes Source: Developed by Drs. Minh Cerda, Mariaa Leach, Mike Santamaria and colleagues, with an educational lennox from [employer]. Thrive Questionnaire Date Thrive assessed: 05/10/24 I am a: Patient What is your living situation today?: I have a steady place to live Within the past 12 months, did the food you bought not last and you didn't have the money to get more?: Never true Within the past 12 months, did you worry whether your food would run out before you got money to buy more?: Never true Do you have trouble paying for medicines?: No Do you have trouble getting transportation to medical appointments?: No Do you have trouble paying your heating and electricity bill?: No Do you have trouble taking care of your child, family member or friend?: No Do you have trouble with day-to-day activities such as bathing, preparing meals, shopping, managing finances, etc.?: No Are you currently unemployed and looking for a job?: No Are you interested in more education?: No Please select the resources that you would like help with: None Currently or been in a relationship where the following occur: No concerns reported THRIVE Score: 0 AUDIT C Alcohol Use Questionnaire (AUDIT-C) 1. How often do you have a drink containing alcohol?: 2-4 times a month 2. How many drinks containing alcohol do you have on a typical day when you are drinking?: 3 or 4 3. How often do you have six or more drinks on one occasion?: Never Total Score: 3 Score Reviewed/Action Taken: Yes SANDY-7 AMB Questionnaire SANDY-7 Date SANDY - 7 assessed: 05/10/24 Feeling nervous, anxious, or on edge: 0 = Not at all Not being able to stop or control worryin = Not at all Worrying too much about different things: 0 = Not at all Trouble relaxin = Not at all Being so restless that it is hard to sit still: 0 = Not at all Becoming easily annoyed or irritable: 0 = Not at all Feeling afraid as if something awful might happen: 0 = Not at all Total SANDY-7 score (0-4 normal; 5-9 mild; 10-14 moderate; 15-21 severe): 0 Source: Developed by Drs. Minh Cerda, Mike Blackwell and colleagues, with an educational lennox from [employer]. SANDY-7 Assessment Billing SANDY-7 Assessment Tool: SANDY-7 Assessment 96576 Review of Systems Const All systems reviewed & are unremarkable except as noted in HPI and below ENT Reports sore throat Card Denies chest pain at rest, Denies chest pain with activity, Denies edema, Denies irregular heart rhythm, Denies claudication, Denies dyspnea, Denies dyspnea on exertion, Denies orthopnea, Denies paroxysmal nocturnal dyspnea and Denies slow heart rate Resp Denies cough, Denies dyspnea and Denies dyspnea on exertion GI Denies abdominal pain, Denies change in bowel habits, Denies excessive flatus, Denies nausea and Denies vomiting Physical exam (Primary Care) Vital Signs: Last Vital Signs BP 120/80 05/10/24 14:47 BMI result Body Mass Index 27.5 Tobacco/Smoking Status: Tobacco use Status Tobacco use date assessed 05/10/24 05/10/24 14:54 Patient Tobacco Use Status Current everyday Tobacco 05/10/24 14:50 Tobacco use type Cigarette 05/10/24 14:50 e-Cigarette/Vaping Use Never Used 05/10/24 14:50 Are you ready to quit: Yes Tobacco cessation counseling provided: Yes Items discussed: Nicotine replacement and QuitWorks Relapse Prevention: discussed the importance of a supportive environment, discussed extending NRT, discussed negative mood or depression after quitting, weight gain after smoking is common and discussed dietary, exercise and/or lifestyle changes Number of minutes spent counselin CPT code: 43498 - 4-10 Minutes PHQ-9: PHQ-9 Score PHQ-9: Total score 0 05/10/24 15:09 Depression Screening Interpretation: Negative Thrive Assessment: Date of Thrive Assessment Date Thrive assessed 05/10/24 05/10/24 14:54 Currently or been in a relationship where the following occur: No concerns reported Resp Effort & Inspection: normal respiratory effort Auscultation: clear to auscultation bilaterally Cardio Jugular venous distension: no JVD Rate: regular rate Rhythm: regular rhythm Heart sounds: S1 normal heart sound present and S2 normal heart sound present Extrem General: Yes full ROM Coding Level of Care Code Est Pt Level 4 (32764) Complex EM visit Add On G2211 Diagnoses COPD (chronic obstructive pulmonary disease) J44.9 Chronic sore throat J31.2 Dysphagia R13.10 Essential hypertension I10 Hypovitaminosis D E55.9 Additional Codes SANDY-7 Assessment Billing - SANDY-7 Assessment Tool: SANDY-7 Assessment 47286 ([id number]) PHQ-9 - 44640 - PHQ-9 Billing: Yes ([id number]) Vital Signs *Quality* - CPT code: 81187 - 4-10 Minutes ([id number]) Time Spent (min) 22 Assessment & Plan Assessment & Plan (1) COPD (chronic obstructive pulmonary disease): Code(s): J44.9 - Chronic obstructive pulmonary disease, unspecified Category: Medical (2) Chronic sore throat: Code(s): J31.2 - Chronic pharyngitis Category: Medical (3) Dysphagia: Code(s): R13.10 - Dysphagia, unspecified Category: Medical (4) Essential hypertension: Code(s): I10 - Essential (primary) hypertension Category: Medical (5) Hypovitaminosis D: Code(s): E55.9 - Vitamin D deficiency, unspecified Category: Medical Plan Continue current medications. Referred to ENT. Barium swallow ordered. Lipid panel ordered. Orders: Orders Vitamin D 25-OH Total 6 Months E55.9 - Vitamin D deficiency, unspecified [place] barium swallow Today R13.10 - Dysphagia, unspecified Lipid Panel 6 Months E78.5 - Hyperlipidemia, unspecified Comprehensive [place]. Panel Fast 6 Months J44.9 - Chronic obstructive pulmonary disease, unspecified Referrals Ear/Nose/Throat Referral J31.2 - Chronic pharyngitis
--- OUTSIDE RECORDS SUMMARY | 2024-05-10 15:43 | XMS_ITS | Clinical Summary ---
Author Organization [facility] Address [address] [place] [address] Care Team Providers Care Log Washer Name Role Phone Unavailable Primary Care Provider Unavailabl e Social History Tobacco Use Types Packs/Day Years Used Date Smoking Tobacco: Never Assessed Sex and Gender Information Value Date Recorded Sex Assigned at Not on file Gender Identity Not on file Sexual Orientation Not on file Plan of Treatment Health Maintenance Due Date Last Done Comments DTaP,Tdap,and Td Vaccines (1 - Tdap) 01/18/1980 Zoster Vaccines (1 of 2) 2011 COVID-19 Vaccine (2023-2 5 season) 2023 Influenza Vaccine (#1) 2023 RSV Immunization Patients 60 + Years Old (1 - 1-dose 75+ series) 01/18/2036 HIB Vaccines Aged Out No longer eligi ble based on patient's age to complete this topic HPV Vaccines Aged Out No longer eligi ble based on patient's age to complete this topic Hepatitis A Vaccines Aged Out No long er eligible based on patient's age to complete this topic Hepatitis B Vaccines Aged Out No long er eligible based on patient's age to complete this topic IPV Vaccines Aged Out No longer eligi ble based on patient's age to complete this topic MMR Vaccines Aged Out No longer eligi ble based on patient's age to complete this topic Meningococcal ACWY Vaccine Aged Out N o longer eligible based on patient's age to complete this topic Pneumococcal Vaccine: Pediat rics (0 to 5 Years) and At-Risk Patients (6 to 64 Years) Aged Out No longer eligible b ased on patient's age to complete this topic RSV Immunization Patients Un ana paula 20 months Aged Out No longer eligible b ased on patient's age to complete this topic Varicella Vaccines Aged Out No longer eligible based on patient's age to complete this topic
== END 2024-05-10 15:16 | disposition home or self-care (01) ==
PROVIDERS: PCP Internal Medicine; Visit Provider Internal Medicine
DX: J44.9 Chronic obstructive pulmonary disease, unspecified (principal); J31.2 Chronic pharyngitis; R13.10 Dysphagia, unspecified; I10 Essential (primary) hypertension; E55.9 Vitamin D deficiency, unspecified

== ENCOUNTER → 2024-05-10 14:44 | Outpatient (BNVA) | payer OTHER, SELFPAY | PROVIDERS: PCP Internal Medicine; Visit Provider Internal Medicine | DX: J44.9 Chronic obstructive pulmonary disease, unspecified (principal); J31.2 Chronic pharyngitis; R13.10 Dysphagia, unspecified; E55.9 Vitamin D deficiency, unspecified; I10 Essential (primary) hypertension | CPT/HCPCS: 96127; 99212 ==

== ENCOUNTER 2024-05-11 13:40 | Outpatient (AMB) | payer OTHER, SELFPAY ==
--- NOTE | 2024-05-11 14:16 | A.OFFVIS_ITS ---
Vital Signs 05/11/24 14:17 Height 5 ft 9 in Weight 187 lb BMI 27.6 BP 130/72 Blood Pressure Location Lt brachial Position Sitting Respiration 16 Pulse 83 Pulse Source Pulse Oximeter Pulse Oximetry (%) 93 Oxygen Delivery Method Room Air Intake Visit Reasons: COPD Office Runner Required: No Allergies cat dander [CAT] Allergy (Mild, Verified 05/11/24 14:19) ITCHING Medication List - Last Reconciled 05/11/24 by Gosia Pandya LPN amlodipine 10 mg PO DAILY 90 days calcium carbonate-vitamin D3 250 mg-3.125 mcg (125 unit) (Oyster Shell Calcium- Vitamin D3) 1 tab PO DAILY 90 days cholecalciferol (vitamin D3) 25 mcg PO DAILY 90 days fluticasone propionate 50 mcg/actuation 1 spray intranasal DAILY lcayiceklts-riwtqkfnh-cezbgqac 200-62.5-25 mcg (Trelegy Ellipta) 1 inh inhalation DAILY gabapentin 600 mg PO TID 30 days ibuprofen 600 mg PO TID levalbuterol tartrate 45 mcg/actuation (Xopenex HFA) 2 inhalations inhalation Q6H 30 days loratadine 10 mg PO DAILY losartan 25 mg PO DAILY 90 days rosuvastatin 10 mg PO BEDTIME 90 days Ventolin HFA 90 mcg/actuation (albuterol sulfate) 2 puffs inhalation Q6H PRN 30 days NS HPI HPI COPD: Details: 64-year-old gentleman, recent 50+ pack-year smoker, referred for pulmonary evaluation. Patient does complain of lump sensation in his throat and some dyspnea. He has been using levalbuterol MDI with suboptimal control of his symptoms. Patient does have family history of COPD in his mother. He denies exposure to industrial dusts. He does complain of multiple environmental allergies. He denies having recent pulmonary or allergy testing. After the last office visit patient completed his pulmonary function test that showed underlying moderate obstructive ventilatory defect. He was not able to complete his lung cancer screening. Patient also has not received trilogy. He denies acute exacerbations. His immunologic testing is essentially unremarkable . [facility] Medical History Hypovitaminosis D Ingrown toenail Hepatitis C Essential hypertension Peripheral axonal neuropathy Sacroiliitis Surgical History History of strabismus surgery History of knee surgery Family History Father Stroke Hypertension Mother COPD (chronic obstructive pulmonary disease) Maternal Grandmother No problems noted. Maternal Grandfather No problems noted. Paternal Grandmother Cancer Social History Housing: Apartment Alcohol intake: current Alcohol intake frequency: a few times a month Alcohol type: beer Patient Tobacco Use Status: Current everyday Tobacco user Tobacco use type: Cigarette Cigarette Packs Per Day: 1 Years Smoked: started around age 17, 2PPD e-Cigarette/Vaping Use: Never Used Second Hand Smoke Exposure: No service: No Current occupational status: employed Current occupational exposures/hazards: No Cognitive needs: No Hearing needs: No Vision needs: Yes Review of Systems Const Denies daytime sleepiness, Denies excessive sweating, Denies fatigue, Denies fever(s), Denies lethargy, Denies malaise, Denies night sweats, Denies snoring and Denies weight loss Eyes Denies blurry vision and Denies itchy eyes ENT Denies nasal congestion, Denies post nasal drip, Denies sinus pain, Denies sinus pressure and Denies other ( Thrush) Card Denies chest pain, Denies pedal edema, Denies dyspnea, Denies orthopnea and Denies paroxysmal nocturnal dyspnea Resp Denies cough, Denies hemoptysis, Denies excessive phlegm production, Denies dyspnea, Denies snoring and Denies wheezing GI Denies abdominal pain and Denies heartburn Musc Denies myalgias, Denies arthralgias and Denies joint swelling Skin/Breast Denies rash Neuro Denies memory loss and Denies seizure-like activity Psych Denies abnormal sleep pattern, Denies anxiety and Denies memory loss Endo Denies excessive sweating, Denies fatigue and Denies heat intolerance Naveed/Lymph Denies easy bruising Aller/Immun Denies itchy eyes, Denies seasonal rhinorrhea and Denies wheezing Physical Exam Vital Signs: Last Vital Signs Pulse 83 05/11/24 14:17 Resp 16 05/11/24 14:17 BP 130/72 05/11/24 14:17 Pulse Ox 93 05/11/24 14:17 Oxygen Delivery Method Room Air 05/11/24 14:17 BMI result Body Mass Index 27.6 Const General: no acute distress and alert Nutritional Appearance: not obese Orientation/consciousness: Other orientation findings ( oriented) HEENT Head: Yes atraumatic Eyes General: appearance normal, both eyes and all related structures Sclerae: sclerae normal EOM: EOMs intact bilaterally Neck Neck: Yes supple Lymphatic: no lymphadenopathy noted Resp Effort & Inspection: normal respiratory effort and no use of accessory muscles Auscultation: clear to auscultation bilaterally Cardio Rate: regular rate Rhythm: regular rhythm Heart sounds: no gallops, no murmurs and no rubs Skin General skin exam: other ( warm) Extrem General: No clubbing, No cyanosis and No edema Assessment & Plan Assessment & Plan (1) Personal history of nicotine dependence: Code(s): Z87.891 - Personal history of nicotine dependence Category: Medical Plan: Lung cancer screening CT chest is pending. (2) COPD (chronic obstructive pulmonary disease): Code(s): J44.9 - Chronic obstructive pulmonary disease, unspecified Category: Medical Plan: Suboptimally controlled on Xopenex MDI. Patient was not able to receive Trelegy, will switch to Anoro. Medications: New umeclidinium-vilanterol 62.5-25 mcg/actuation (Anoro Ellipta) 1 inh inhalation DAILY 1 ea 6RF Discontinued vreyezhfntv-qbfavirkc-mttdwsyr 200-62.5-25 mcg (Trelegy Ellipta) Discontinued Reason: Doctor's Order 1 inh inhalation DAILY 1 ea 6RF J44.9 - Chronic obstructive pulmonary disease, unspecified Coding Level of Care Code Est Pt Level 4 (42027) Diagnoses Personal history of nicotine dependence Z87.891 COPD (chronic obstructive pulmonary disease) J44.9
[2024-05-11 14:17] VITALS: BP 130/72; PULSE 83; RESP 16; O2SAT 93; BMI 27.6
--- OUTSIDE RECORDS SUMMARY | 2024-05-11 15:55 | XMS_ITS | Clinical Summary ---
Author Organization [facility] Address [address] [place] [address] Care Team Providers Care Refuse Laborer Name Role Phone Unavailable Primary Care Provider [...]
== END 2024-05-11 14:37 | disposition home or self-care (01) ==
PROVIDERS: PCP Internal Medicine; Visit Provider Internal Medicine Pulmonary Disease
DX: Z87.891 Personal history of nicotine dependence (principal); J44.9 Chronic obstructive pulmonary disease, unspecified
CPT/HCPCS: 99214

== ENCOUNTER → 2024-05-11 13:40 | Outpatient (BNVA) | payer OTHER, SELFPAY | PROVIDERS: PCP Internal Medicine; Visit Provider Internal Medicine Pulmonary Disease | DX: J44.9 Chronic obstructive pulmonary disease, unspecified (principal); Z87.891 Personal history of nicotine dependence | CPT/HCPCS: 99212 ==

== ENCOUNTER 2024-10-06 09:51 | Outpatient (REF) | payer OTHER, SELFPAY ==
--- NOTE | ~2024-10-06 | FL_ITS ---
EXAMINATION: XR BARIUM SWALLOW CLINICAL INFORMATION: Dysphagia. COMPARISON: None available. TECHNIQUE: Following oral administration of thick barium and barium coated saltine crackers. Patient was placed prone and thin barium was administered. FINDINGS: Following oral administration of thick air in upright view there is normal propagation bolus from the oral cavity through the pharynx, esophagus into stomach without obstruction, narrowing or stricture. On oral administration of barium coated saltine crackers with normal propagation of solid bolus from oral cavity through the pharynx, esophagus and stomach. No obstruction seen. On placing patient prone lying and oral demonstration of thin barium there is good distention of esophagus. Incidental finding of a small hiatal hernia with mild gastroesophageal reflux noted. FLUOROSCOPY TIME: 2 minutes and 3 seconds DOSE AREA PRODUCT: 1459 uGy-m2 (microgray-meter squared) FL/FL barium swallow IMPRESSION: Small sliding hiatal hernia with mild gastroesophageal reflux. Rest of the barium swallow appears unremarkable. Electronically signed by: Werner Alexandre MD 10/06/2024 12:28 PM EDT
--- OUTSIDE RECORDS SUMMARY | 2024-10-06 11:12 | XMS_ITS | Clinical Summary ---
Author Organization [facility] Address [address] [place] [address] Care Team Providers Care Nutrition And Dietetics Instructor Name Role Phone Unavailable Primary Care Provider Unavailabl e Social History Tobacco Use Types Packs/Day Years Used Date Smoking Tobacco: Never Assessed Sex and Gender Information Value Date Recorded Sex Assigned at Not on file Legal Sex Male 2:52 PM EST Gender Identity Not on file Sexual Orientation Not on file Plan of Treatment Health Maintenance Due Date Last Done Comments DTaP,Tdap,and Td Vaccines (1 - Tdap) 01/18/1980 Pneumococcal Vaccine: 50+ Ye ars (1 of 1 - PCV) 2011 Zoster Vaccines (1 of 2) 2011 COVID-19 Vaccine (1 - 2023-2 5 season) 2023 Influenza Vaccine (Season Ended) 2024 RSV Immunization Adult Patie nts (1 - 1-dose 75+ series) 01/18/2036 HIB [...] patient's age to complete this topic Meningococcal B Vaccine Aged Out No l onger eligible based on patient's age to complete this topic Pneumococcal Vaccine: Pediat rics (0 to 5 Years) and At-Risk Patients (6 to 64 Years) Aged Out No longer eligible b ased on patient's age to complete this topic RSV Immunization Patients Un naa paula 20 months Aged Out No longer eligible b ased on patient's age to complete this topic Varicella Vaccines Aged Out No longer eligible based on patient's age to complete this topic
== END 2024-10-06 09:52 | disposition home or self-care (01) ==
LOC: HO.XRAY 09:51
PROVIDERS: PCP Internal Medicine; Visit Provider Internal Medicine
DX: R13.10 Dysphagia, unspecified (principal)
CPT/HCPCS: 74220

== ENCOUNTER → 2024-10-06 09:53 | Outpatient (BNV) | payer OTHER, SELFPAY | PROVIDERS: PCP Internal Medicine; Visit Provider Radiology Diagnostic Radiology | DX: R13.10 Dysphagia, unspecified (principal) | CPT/HCPCS: 74220 ==

== ENCOUNTER 2024-11-08 15:17 | Outpatient (AMB) | payer OTHER, SELFPAY ==
--- NOTE | 2024-11-08 15:19 | MHC.PC.OV ---
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 Accompanied by: Self / Same As Patient Allergies cat dander (CAT) Allergy (Mild, Verified 11/08/24 15:38) ITCHING Medication List - Last Reconciled 11/08/24 by Helga Ibarra MD amlodipine 10 mg PO DAILY 90 days calcium carbonate-vitamin D3 250 mg-3.125 mcg (125 unit) (Oyster Shell Calcium-Vitamin D3) 1 tab PO DAILY 90 days cholecalciferol (vitamin D3) 25 mcg PO DAILY 90 days fluticasone propionate 50 mcg/actuation 1 spray intranasal DAILY gabapentin 600 mg PO TID 30 days ibuprofen 600 mg PO TID levalbuterol tartrate 45 mcg/actuation (Xopenex HFA) 2 inhalations inhalation Q6H 30 days loratadine 10 mg PO DAILY losartan 25 mg PO DAILY 90 days rosuvastatin 10 mg PO BEDTIME 90 days umeclidinium-vilanterol 62.5-25 mcg/actuation (Anoro Ellipta) 1 inh inhalation DAILY Ventolin HFA 90 mcg/actuation (albuterol sulfate) 2 puffs inhalation Q6H PRN 30 days NS Tobacco use date assessed: 05/10/24 Dental Screening Dental Screen Date: 05/10/24 HPI HPI Comments History of Present Illness Details The patient is a 64-year-old male presenting with a physical exam and preventative care. The patient has a history of hypertension, managed with amlodipine and losartan 25 mg. He also has a history of hyperlipidemia, for which he takes rosuvastatin 10 mg. The patient reports a diagnosis of Chronic Obstructive Pulmonary Disease (COPD), managed with Sopanex and Anoro. He continues to smoke approximately one pack of cigarettes per day, despite a family history of respiratory issues and stroke. The patient experiences neuropathy, for which he takes gabapentin three times a day. He reports minimal depression, describing it as very tiny and not overall affecting his daily life. Preventative care measures discussed include the need for a Tdap vaccination, as the last tetanus vaccine was administered in 2013. The patient is also due for a colonoscopy in 2026, following the last one in 2016. [facility] Medical History Hypovitaminosis D Ingrown toenail Hepatitis C Essential hypertension Peripheral axonal neuropathy Sacroiliitis Surgical History History of strabismus surgery History of knee surgery Family History Father Stroke Hypertension Mother COPD (chronic obstructive pulmonary disease) Maternal Grandmother No problems noted. Maternal Grandfather No problems noted. Paternal Grandmother Cancer Social History Housing: Apartment Alcohol intake: current Alcohol intake frequency: a few times a month Alcohol type: beer Patient Tobacco Use Status: Current everyday Tobacco user Tobacco use type: Cigarette Cigarette Packs Per Day: 1 Years Smoked: started around age 17, 2PPD e-Cigarette/Vaping Use: Never Used Second Hand Smoke Exposure: No service: No Current occupational status: employed Current occupational exposures/hazards: No Cognitive needs: No Hearing needs: No Vision needs: Yes Questionnaire PHQ-9 Over the last 2 weeks, how often have you been bothered by any of the following problems? 1. Little interest or pleasure in doing things: more than half the days 2. Feeling down, depressed, or hopeless: more than half the days 3. Trouble falling or staying asleep, or sleeping too much: not at all 4. Feeling tired or having little energy: not at all 5. Poor appetite or overeating: not at all 6. Feeling bad about yourself - or that you are a failure or have let yourself or your family down: not at all 7. Trouble concentrating on things, such as reading the newspaper or watching television: not at all 8. Moving or speaking so slowly that other people could have noticed. Or the opposite - being so fidgety or restless that you have been moving around a lot more than usual: not at all 9. Thoughts that you would be better off or of hurting yourself in some way: not at all Total score: 4 Depression Screening Interpretation: Positive Depression Screening Follow-up: Existing condition and Follow-up Visit Requested Depression Screening Done: Yes 06908 - PHQ-9 Billing: Yes Source: Developed by Drs. Minh Cerda, Mariaa Leach, Mike Santamaria and colleagues, with an educational lennox from [email or web address]. Thrive Questionnaire Date Thrive assessed: 11/01/24 I am a: Patient What is your living situation today?: I have a steady place to live Within the past 12 months, did the food you bought not last and you didn't have the money to get more?: I choose not to answer this question Within the past 12 months, did you worry whether your food would run out before you got money to buy more?: I choose not to answer this question Do you have trouble paying for medicines?: I choose not to answer this question Do you have trouble getting transportation to medical appointments?: I choose not to answer this question Do you have trouble paying your heating and electricity bill?: I choose not to answer this question Do you have trouble taking care of your child, family member or friend?: I choose not to answer this question Do you have trouble with day-to-day activities such as bathing, preparing meals, shopping, managing finances, etc.?: I choose not to answer this question Are you currently unemployed and looking for a job?: I choose not to answer this question Are you interested in more education?: I choose not to answer this question Please select the resources that you would like help with: None Currently or been in a relationship where the following occur: No concerns reported THRIVE Score: 0 AUDIT C Alcohol Use Questionnaire (AUDIT-C) 1. How often do you have a drink containing alcohol?: Monthly or less 2. How many drinks containing alcohol do you have on a typical day when you are drinking?: 1 or 2 3. How often do you have six or more drinks on one occasion?: Never Total Score: 1 Score Reviewed/Action Taken: No SANDY-7 AMB Questionnaire SANDY-7 Date SANDY - 7 assessed: 11/08/24 Feeling nervous, anxious, or on edge: 2 = More than half the days Not being able to stop or control worryin = More than half the days Worrying too much about different things: 3 = Nearly every day Trouble relaxin = Nearly every day Being so restless that it is hard to sit still: 0 = Not at all Becoming easily annoyed or irritable: 3 = Nearly every day Feeling afraid as if something awful might happen: 0 = Not at all Total SANDY-7 score (0-4 normal; 5-9 mild; 10-14 moderate; 15-21 severe): 13 Source: Developed by Drs. Minh Cerda, Mariaa Leach, Mike Santamaria and colleagues, with an educational lennox from [email or web address]. SANDY-7 Assessment Billing SANDY-7 Assessment Tool: SANDY-7 Assessment 84744 Review of Systems Const All systems reviewed & are unremarkable except as noted in HPI and below Card Denies chest pain at rest, Denies chest pain with activity, Denies edema, Denies irregular heart rhythm, Denies claudication, Denies dyspnea, Denies dyspnea on exertion, Denies orthopnea, Denies paroxysmal nocturnal dyspnea and Denies slow heart rate Resp Denies cough, Denies dyspnea and Denies dyspnea on exertion GI Denies abdominal pain, Denies change in bowel habits, Denies excessive flatus, Denies nausea and Denies vomiting Physical exam (Primary Care) Vital Signs: Last Vital Signs BP 130/72 11/08/24 15:20 BMI result Body Mass Index 26.6 Tobacco/Smoking Status: Tobacco use Status Tobacco use date assessed 05/10/24 11/08/24 15:25 Patient Tobacco Use Status Current everyday Tobacco 11/08/24 15:25 Tobacco use type Cigarette 11/08/24 15:25 e-Cigarette/Vaping Use Never Used 11/08/24 15:25 PHQ-9: PHQ-9 Score PHQ-9: Total score 4 11/08/24 15:55 Depression Screening Interpretation: Positive Depression Screening Follow-up: Existing condition and Follow-up Visit Requested Thrive Assessment: Date of Thrive Assessment Date Thrive assessed 11/01/24 11/08/24 15:25 Currently or been in a relationship where the following occur: No concerns reported HENMT Head: Yes normal to inspection, Yes normocephalic and Yes atraumatic Ears: external ears normal Eyes General: appearance normal, both eyes and all related structures Eyelids: Yes eyelids normal Conjunctivae: conjunctivae normal Neck Neck: Yes normal visual inspection and Yes supple Resp Effort & Inspection: normal respiratory effort Auscultation: clear to auscultation bilaterally Cardio Jugular venous distension: no JVD Rate: regular rate Rhythm: regular rhythm Heart sounds: S1 normal heart sound present and S2 normal heart sound present GI Inspection: Yes normal to inspection Palpation (GI): Soft to palpation and nontender Auscultation: normal bowel sounds Skin General skin exam: no rashes or lesions noted Neuro General: no focal motor deficits Extrem General: Yes full ROM Psych Appearance: grossly normal Immunizations Boostrix Tdap 2.5 Lf unit-8 mcg-5 Lf/0.5 mL intramuscular syringe Performing Provider: Helga Ibarra MD [place] [facility] [place] [facility] Administered by: JOSÉ ANTONIO Cuellar on 11/08/24 15:57 Dose Route Admin Location Dispensed Lot Number Expiration Date NDC Grave Digger 0.5 mL IM Right Deltoid 0.5 mL [id number] 06/03/26 [id number] [employer] Total Dispensed Waste 0.5 mL 0 % VIS Given Date VIS Provided VIS Publication Date 11/08/24 Single Vaccine 24 Eligibility Eligibility Date Funding Source Not [facility] Eligible 11/08/24 Private Coding Level of Care Code Est Pt Prev Care 40-64y(73863) Diagnoses Physical exam Z00.00 COPD (chronic obstructive pulmonary disease) J44.9 Additional Codes SANDY-7 Assessment Billing - SANDY-7 Assessment Tool: SANDY-7 Assessment 07687 ([id number]) PHQ-9 - 22279 - PHQ-9 Billing: Yes ([id number]) Time Spent (min) 31 Assessment & Plan Assessment & Plan (1) Physical exam: Code(s): Z00.00 - Encounter for general adult medical examination without abnormal findings Category: Medical (2) COPD (chronic obstructive pulmonary disease): Code(s): J44.9 - Chronic obstructive pulmonary disease, unspecified Category: Medical Plan The patient will receive a Tdap vaccination today, as it is due since the last administration was in 2013. A follow-up colonoscopy is scheduled for 2026, following the previous one in 2016. Regular monitoring of cholesterol and blood sugar levels is advised, with fasting required for accurate results. The patient is encouraged to consider smoking cessation due to the ongoing COPD and family history of respiratory issues. Patient was informed and verbally consented to the use of an ambient scribe for clinic note documentation during this visit. Orders: Orders Lipid Panel Today E78.5 - Hyperlipidemia, unspecified Vitamin D 25-OH Total Today E55.9 - Vitamin D deficiency, unspecified Comprehensive [place]. Panel Fast Today I10 - Essential (primary) hypertension TDaP Immunization Today Z23 - Encounter for immunization
[2024-11-08 15:20] VITALS: BP 130/72; BMI 26.6
--- OUTSIDE RECORDS SUMMARY | 2024-11-08 16:06 | XMS_ITS | Clinical Summary ---
Author Organization [facility] ity Address [address] [place] [address] Care Team Providers Care Director Nursing Service Name Role Phone Unavailable Primary Care Provider [...] Vaccine (1 - 2023-2 5 season) 2023 Depression Screening 04/13/2024 Influenza Vaccine (#1) 2024 RSV Immunization Adult Patie nts (1 [...]
--- OUTSIDE RECORDS SUMMARY | 2024-11-08 16:07 | XMS_ITS | Patient Health Record ---
Author Organization [facility] Address [address] [place] [address] Care Team Providers Care College Hire Name Role Phone Helga Santos Primary Care Provider Minh Whitman Unavailable [phone] Reason For Referral No Information Medications Medication SIG (Take, Route, Frequency, Duration) Notes Start Date End Date Status Losartan Potassium 100 MG TAKE 1 TABLET BY MOUTH EVERY DAY Oral for 30 Active Calcium 600 MG 1 tablet with meals Orally Once a day Active Ibuprofen 600 MG TAKE 1 TABLET BY SINDY TH 3 TIMES A DAY Oral every 6 hrs/prn Active tiZANidine HCl 4 MG TAKE 1 TABLET BY SINDY TH THREE TIMES A DAY NEEDED Oral Three times a day/prn Active Immunizations Vaccine Route Administration Date Status Comme nts Influenza Unknown 02/17/2018 Administered Social History Tobacco Use: Social History Observation Description Date Details (start date - stop date) Current Smoker NA - NA Tobacco Use/Smoking Question Answer Notes Patient is a current smoker How often do you smoke cigarettes? every day How many cigarettes a day do you smoke? 21-30 How soon after you wake up d o you smoke your first cigarette? 6-30 minutes Are you interested in quitting? Thinking about q uitting Alcohol Screen Question Answer Notes Did you have a drink containing alcohol in the p ast year? No Points 0 Interpretation Negative Section Notes: Smoker 1 1/2 ppd; no sig alc ohol Smoker 1 1/2 ppd; no sig alc ohol Problems Problem Type SNOMED Code ICD Code Onset Dates Problem Status W/U Status Risk Notes Problem 743855525 Encounter for screening for malignant neoplasm of colon (Z12.11) Active confirmed Problem 417430515 Chronic hepatitis C without hepatic coma (B18.2) Active confirmed Problem 13073502923767 History of hepatitis C (Z86.19) Active confirmed Problem 60531892 Liver fibrosis (K74.0) Active confirmed Plan Of Treatment Pending Test Test Name Order Date ALPHA-FETOPROTEIN,TUMOR MARKER 9 HEPATITIS C VIRAL LOAD 06/17/2018 Future Test Test Name Order Date UPPER GI ENDOSCOPY 11/25/2016 COLONOSCOPY 11/25/2016 Insurance Providers Payer Name Payer Address Payer Phone Subscriber Number Group Number Insured Name Patient Relationship to Insured Coverage Start Date Coverage End Date [facility] [employer] [facility] [address] [address] [place], [place] [id number] JOSESAIRA HEIN Self - patient is the insured MEDICAID OF [employer] [address] [place] [address] [id number] JOSESAIRA HEIN Self - patient is the insured Medical (General) History Medical History History ICD Code Hepatitis C-Genotype 1A--Bety er Fibrosis score of 0.91, F4-- Harvantonio treatment with Dr. Ayala finished in approx. September of 2016--negative viral load as of 01/2017 Hypertension Denies AR,DM,CVA,Lung disease,renal dise ase Colonoscopy 02/2017-small tu bular adenomas, diverticulosis, internal hemorrhoids EGD [id number] H H, no varices, no esophagitis, no portal gastropathy Surgical History Surgery Date(Month/Year) Legs - pinned between two cars Age 19
== END 2024-11-08 15:58 | disposition home or self-care (01) ==
LOC: HO.HMCH 15:18
PROVIDERS: PCP Internal Medicine; Visit Provider Internal Medicine
DX: Z00.00 Encounter for general adult medical examination without abnormal findings (principal); J44.9 Chronic obstructive pulmonary disease, unspecified; Z23 Encounter for immunization

== ENCOUNTER → 2024-11-08 15:17 | Outpatient (BNVA) | payer OTHER, SELFPAY | PROVIDERS: PCP Internal Medicine; Visit Provider Internal Medicine | DX: Z00.00 Encounter for general adult medical examination without abnormal findings (principal); Z23 Encounter for immunization; J44.9 Chronic obstructive pulmonary disease, unspecified; Z13.31 Encounter for screening for depression; Z13.39 Encounter for screening examination for other mental health and behavioral disorders | CPT/HCPCS: 90471; 90715; 96127; 99396 ==

== ENCOUNTER 2025-03-29 08:11 | Outpatient (REF) | payer OTHER, SELFPAY ==
--- OUTSIDE RECORDS SUMMARY | 2025-03-29 08:17 | XMS_ITS | Clinical Summary ---
Author Organization [facility] ity Address [address] [place] [address] Care Team Providers Care Bellhop Captain Name Role Phone Unavailable Primary Care Provider [...] 2011 Zoster Vaccines (1 of 2) 2011 Depression Screening 04/13/2024 COVID-19 Vaccine (1 - 2024-2 6 season) 2024 Influenza Vaccine (#1) 2024 RSV Immunization Adult [...]
--- OUTSIDE RECORDS SUMMARY | 2025-03-29 08:17 | XMS_ITS | Patient Health Record ---
Author Organization [facility] Address [address] [place] [address] Care Team Providers Care Shingle Catcher Name Role Phone Helga Santos Primary Care Provider Minh Whitman Unavailable [phone] Reason For Referral No Information Medications Medication SIG (Take, Route, Frequency, Duration) Notes Start Date End Date Status Losartan Potassium 100 MG Tablet TAKE 1 TABLET BY MOUTH EVERY DAY Oral; Duration: 30 Active Calcium 600 MG Tablet 1 tablet with meal s Orally Once a day Active Ibuprofen 600 MG Tablet TAKE 1 TABLET BY MOUTH 3 TIMES A DAY Oral every 6 hrs/prn Active tiZANidine HCl 4 MG Tablet TAKE 1 TABLET BY MOUTH THREE TIMES A DAY NEEDED Oral Three times a day/prn Active Immunizations Vaccine Route Administration Date Status Comme nts Influenza Unknown 02/17/2018 Administered Social History Tobacco Use: Social History Observation Description Date Details (start date - stop date) Current Smoker NA - NA Social History Drugs/Alcohol: Social Info Question Answer Notes Alcohol Screen Did you have a drink containing alcohol in the past year? No Points 0 Interpretation Negative Tobacco Use: Social Info Question Answer Notes Tobacco Use/Smoking Patient is a current smoker How often do you smoke cigarettes? every day How many cigarettes a day do you smoke? 21-30 How soon after you wake up do you smoke your first cigarette? 6-30 minutes Are you interested in quitting? 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 Section Notes: Smoker 1 1/2 ppd; no sig alc ohol Smoker 1 1/2 ppd; no sig alc ohol Problems Problem Type SNOMED Code ICD Code Onset Dates Problem Status W/U Status Risk Notes Problem Screening for malignant neoplasm of colon (061023181) Encounter for screening for malignant neoplasm of colon (Z12.11) Active confirmed Problem Chronic hepatitis C (865917870) Chronic hepatitis C without hepatic coma (B18.2) Active confirmed Problem History of hepatitis C (9156218170860 1) History of hepatitis C (Z86.19) Active confirmed Problem Hepatic fibrosis (disorder) (56076823) Liver fibrosis (K74.0) Active confirmed Plan Of Treatment Pending Test Test Name Order Date ALPHA-FETOPROTEIN,TUMOR MARKER 9 HEPATITIS C VIRAL LOAD 06/17/2018 Future Test Test Name Order Date UPPER GI ENDOSCOPY 11/25/2016 COLONOSCOPY 11/25/2016 Insurance Providers Payer Name Payer Address Payer Phone Subscriber Number Group Number Insured Name Patient Relationship to Insured Coverage Start Date Coverage End Date [facility] [employer] [facility] [address] [address] [place], [place] [id number] LAURA SAIRA Willis Self - patient is the insured [facility] [address] [place] [address] [id number] JOSEMARIAELENA USAIRA Self - patient is the insured Medical (General) History Medical History History ICD Code Hepatitis C-Genotype 1A--Bety er Fibrosis score of 0.91, F4-- Harvantonio treatment with Dr. Ayala finished in approx. September of 2016--negative viral load as of 01/2017 Hypertension Denies ID,DM,CVA,Lung disease,renal dise ase Colonoscopy 02/2017-small tu bular adenomas, diverticulosis, internal hemorrhoids EGD [id number] H H, no varices, no esophagitis, no portal gastropathy Surgical History Surgery Date(Month/Year) Legs - pinned between two cars Age 19
[2025-03-29 09:35] LABS: Alanine Aminotransferase 61 U/L (0-40); Albumin Level 4.6 g/dL (3.5-5.0); Alkaline Phosphatase 71 U/L (39-117); Anion Gap 12 (12-20); Aspartate Amino Transferase 33 U/L (5-37); Blood Urea Nitrogen 16 mg/dL (9-16); Calcium 9.8 mg/dL (8.4-10.2); Carbon Dioxide 27 mmol/L (22-29); Chloride 105 mmol/L (96-108); Cholesterol 173 mg/dL (<200); Estimated Glomerular Filt Rate 56; HDL Cholesterol 35 mg/dL (>40); Potassium 4.0 mmol/L (3.3-5.1); Sodium 140 mmol/L (135-145); Total Protein 7.8 g/dL (6.5-8.0); Triglycerides 152 mg/dL (<150)
== END 2025-03-29 08:12 | disposition home or self-care (01) ==
LOC: HO.LAB 08:11
PROVIDERS: PCP Internal Medicine; Visit Provider Internal Medicine
DX: I10 Essential (primary) hypertension (principal); E78.5 Hyperlipidemia, unspecified; E55.9 Vitamin D deficiency, unspecified; J44.9 Chronic obstructive pulmonary disease, unspecified
CPT/HCPCS: 36415; 80053; 80061; 82306